=== PATIENT | male | born 1995 | race Two or more races ===

== ENCOUNTER 2019-04-13 09:34 | Emergency (ER) | payer OTHER ==
[~2019-04-13] VITALS: Ht 182.9 cm; Wt 65.8 kg
[~2019-04-13 09:34] MED LIST: AMOX1TAB5
== END 2019-04-13 17:32 | disposition home or self-care (01) ==
LOC: ER 09:34
DX: K52.9 Noninfective gastroenteritis and colitis, unspecified (principal)

== ENCOUNTER 2020-12-11 20:07 | Emergency (ER) | payer OTHER ==
[~2020-12-11] VITALS: Ht 182.9 cm; Wt 68.0 kg
== END 2020-12-11 23:53 | disposition home or self-care (01) ==
LOC: ER 20:07
DX: I88.0 Nonspecific mesenteric lymphadenitis (principal); R10.32 Left lower quadrant pain; Z03.818 Encounter for observation for suspected exposure to other biological agents ruled out

== ENCOUNTER 2022-07-07 20:41 | Emergency (ER) | payer OTHER ==
[~2022-07-07] VITALS: Ht 182.9 cm; Wt 68.0 kg
[2022-07-07] MEDS ORDERED: BACTRIM DS TAB1 EACH PO (21:39)
[2022-07-07] MEDS ORDERED: DICLOFENAC SODI75 MG PO (21:39)
== END 2022-07-07 21:42 | disposition home or self-care (01) ==
LOC: ER 20:41
DX: L03.011 Cellulitis of right finger (principal)

== ENCOUNTER → 2024-12-23 | Emergency (ER) | payer OTHER ==
[~2024-12-23] VITALS: Ht 177.8 cm; Wt 68.0 kg
[~2024-12-23] MED LIST changes: +BACTRIM DS TAB1 EACH PO; +CLOTRIMAZOLE-BE15 G1 TP; +DICLOFENAC SODI75 MG PO; +RISPERIDONE1 MG PO
== END | disposition left against medical advice (07) ==
LOC: ER 19:37
DX: Z53.21 Procedure and treatment not carried out due to patient leaving prior to being seen by health care provider (principal)